=== PATIENT | female | born 1970 | race Caucasian/White ===

== ENCOUNTER 2017-09-11 12:48 | Emergency (ER) | payer OTHER ==
[~2017-09-11] VITALS: Ht 162.6 cm; Wt 73.0 kg
[2017-09-11 12:59] VITALS: PULSE 78; RESP 16; TEMP 97.9; O2SAT 97
[2017-09-11] MEDS ORDERED: TRAZ50TA12 PO (13:11)
[2017-09-11] MEDS ORDERED: CLON.5 PO (13:11)
[2017-09-11] MEDS ORDERED: CELE20TA PO (13:11)
[2017-09-11] MEDS ORDERED: IBUP1TAB7 PO (13:11)
[2017-09-11] MEDS ORDERED: PERC5TAB12 PO (13:11)
[2017-09-11] MEDS ORDERED: ASPI81TA23 PO (13:11)
--- NOTE | 2017-09-11 14:14 | PD ---
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 She had ORIF of the left ankle last week and has a posterior short leg splint in place. While showering today the splint got wet and she was concerned she would need a new one therefore she came in. She denies fever, chills, increasing pain, drainage from the surgical wound. She reports her ankle pain is improving since surgery. Severity mild. No modifying or relieving factors. PFSH Past Medical History Medical History: Denies Significant Hx Tetanus Vaccination: < 5 Years Influenza Vaccination: Yes ?: Not LMP: IUD Past Surgical History Section: Yes (x1) Cholecystectomy: Yes Other Surgery: Yes (ACL left leg) Social History Alcohol Use: No Tobacco Use: No Substance Use: No Allergies-Medications (Allergen,Severity, Reaction): Coded Allergies: Sulfa (Sulfonamide Antibiotics) (Verified Allergy, Unknown, 09/11/17) Reported Meds & Prescriptions Reported Meds & Active Scripts Active Reported Trazodone (Trazodone HCl) Unknown Strength Tab Unknown Dose PO HS Klonopin (Clonazepam) 0.5 Mg Tab 0.5 Mg PO BID PRN Celexa (Citalopram Hydrobromide) 20 Mg Tab 20 Mg PO HS Ibuprofen 800 Mg Tab 800 Mg PO Q6HR PRN Aspirin EC (Aspirin) 81 Mg Tabdr 81 Mg PO DAILY Percocet (Oxycodone-Acetaminophen) Unknown Strength Tab Unknown Dose PO Q4H PRN Review of Systems Except as stated in HPI: all other systems reviewed are Neg General / Constitutional: No: Fever Eyes: No: Visual changes HENT: No: Headaches Cardiovascular: No: Chest Pain or Discomfort Respiratory: No: Shortness of Breath Gastrointestinal: No: Abdominal Pain Genitourinary: No: Dysuria Physical Exam Narrative GENERAL: Alert and well appearing 47-year-old female SKIN: Warm and dry. Surgical wounds with Steri-Strips in place to the lateral and medial aspect of the ankle. No evidence of infection. No drainage. HEAD: Normocephalic. EYES: No injection or drainage. NECK: Supple CARDIOVASCULAR: Regular rate and rhythm RESPIRATORY: Breath sounds equal bilaterally. No accessory muscle use. MUSCULOSKELETAL: No cyanosis, or edema. Left lower extremity: Healing surgical wounds to the medial aspect of the ankle. 1+ nonpitting edema to the foot consistent with postsurgical swelling. Palpable DP pulse. Normal sensation. Brisk cap refill. Data Data Last Documented VS Vital Signs Date Time Temp Pulse Resp B/P (MAP) Pulse Ox O2 Delivery O2 Flow Rate FiO2 09/11/17 13:05 16 97 Room Air 09/11/17 12:59 97.9 78 Orders Orders Support Splint (09/11/17 14:05) [facility] Medical Decision Making Medical Screen Exam Complete: Yes Emergency Medical Condition: Yes Differential Diagnosis Postsurgical wound recheck, splint replacement, other Narrative Course 47-year-old female here after her posterior short leg splint got wet and shower. Her surgical wounds appear to be healing. No evidence of infection. At the time of the exam she had self removed the splint and it is now dry. He was reapplied by the elevator service technician. Diagnosis Primary Impression: Aftercare for cast or splint check or change Referrals: Orthopedist Additional Instructions: Splint as directed. Follow-up with her orthopedic Disposition: 01 DISCHARGE HOME Condition: Stable KdGayla DANIELSON Sep 11, 2017 14:14
== END 2017-09-11 14:45 | disposition home or self-care (01) ==
LOC: PHEFT 12:48
DX: Z47.89 Encounter for other orthopedic aftercare (principal); Z79.82 Long term (current) use of aspirin; Z79.899 Other long term (current) drug therapy
CPT/HCPCS: 99282